=== PATIENT | female | born 1980 | race Caucasian/White ===

== ENCOUNTER → 2020-12-03 16:45 | Outpatient (CLI) | payer BC, SELFPAY ==
[2020-12-08 15:12] LABS: HPV Reflexed? NOT INDICATED
== END ==
PROVIDERS: Visit Provider Obstetrics & Gynecology
DX: Z12.4 Encounter for screening for malignant neoplasm of cervix (principal)
CPT/HCPCS: 88175; G0145

== ENCOUNTER 2022-01-20 16:46 | Outpatient (CLI) | payer BC, SELFPAY ==
[2022-01-24 07:07] LABS: Chlamydia By Nucleic Acid AMP Negative (Negative)
[2022-01-24 13:34] LABS: Gonococcus By Nucleic Acid AMP Negative (Negative)
[2022-01-25 20:18] LABS: HPV Reflexed? NOT INDICATED
== END 2022-01-20 23:59 | disposition home or self-care (01) ==
LOC: LABSPEC 16:47
PROVIDERS: Visit Provider Obstetrics & Gynecology
DX: Z12.4 Encounter for screening for malignant neoplasm of cervix (principal); Z11.3 Encounter for screening for infections with a predominantly sexual mode of transmission
CPT/HCPCS: 87491; 87591; 88175; G0145